=== PATIENT | male | born 1995 | race Caucasian/White ===

== ENCOUNTER 2020-07-19 15:36 | Emergency (ER) | payer SELFPAY ==
[~2020-07-19] VITALS: Ht 177.8 cm; Wt 63.0 kg
[2020-07-19] MEDS ORDERED: ACETAMINOPHEN 325MG TABLET PO STA (16:05)
[2020-07-19 16:55] LABS: BASOPHILS % 0.2 % (0.0-2.0); EOSINOPHILS % 0.4 % (0.0-5.0); HEMATOCRIT. 47.3 % (42.0-52.0); HEMOGLOBIN. 15.9 g/dL (14.0-18.0); MEAN CORPUSCULAR HEMOGLOBIN 29.3 pg (28.0-32.0); MEAN CORPUSCULAR VOLUME 86.8 fL (80.0-94.0); MEAN PLATELET VOLUME 8.2 fl (7.4-10.4); MONOCYTES % 6.3 % (2.0-8.0); NEUTROPHILS % 83.1 % (40.0-76.0); PLATELET 217 x1000/uL (130-400); RED BLOOD CELL COUNT 5.45 mill/uL (4.7-6.1); RED CELL DISTRIBUTION WIDTH 13.7 % (11.6-14.6)
[2020-07-19 17:02] LABS: CHLORIDE 106 mEq/L (98-107)
[2020-07-19 18:00] VITALS: BP 113/72
[2020-07-19] MEDS ORDERED: LORAZEPAM 2MG/ML CPJ IV ONE (20:30)
== END 2020-07-19 20:03 | disposition home or self-care (01) ==
LOC: ER 15:36
DX: R07.89 Other chest pain (principal); R51.9 Headache, unspecified
CPT/HCPCS: 36415; 71045; 80053; 84484; 85025; 99285

== ENCOUNTER 2020-07-19 20:16 | Inpatient (IN) | payer MEDICAID ==
[~2020-07-19] VITALS: Ht 188 cm; Wt 70.4 kg
[2020-07-19] MEDS ORDERED: LORAZEPAM 2MG/ML CPJ IV ONE (20:30)
[2020-07-20] MEDS ORDERED: DIPHENHYDRAMINE 50MG/ML VIAL IV PRN (00:45)
[2020-07-20] MEDS ORDERED: LORAZEPAM 2MG/ML CPJ IV PRN (00:45)
[2020-07-20] MEDS ORDERED: NA PHOS,M-B/NA PHOS,DI-BA ENEMA 118ML PR PRN (00:45)
[2020-07-20] MEDS ORDERED: MAGNESIUM/ALUMINUM HYDROXIDE/SIMETHICONE 30ML UDC PO PRN (00:45)
[2020-07-20] MEDS ORDERED: DOCUSATE SODIUM 100MG CAPSULE PO PRN (00:45)
[2020-07-20] MEDS ORDERED: ACETAMINOPHEN 325MG TABLET PO PRN (00:45)
[2020-07-20] MEDS ORDERED: CLONIDINE 0.1MG TABLET PO PRN (00:45)
[2020-07-20] MEDS ORDERED: ONDANSETRON HCL 4MG/2ML INJ IV PRN (00:45)
[2020-07-20] MEDS ORDERED: GUAIFENESIN 200MG/10ML SUGAR FREE UDC PO PRN (00:45)
[2020-07-20] MEDS ORDERED: IPRATROPIUM/ALBUTEROL 0.5-3(2.5)MG/3ML NEB NEB PRN (00:45)
[2020-07-20] MEDS: MORPHINE SULFATE 2 MG/ML CPJ (NOT FOR IM USE) IV PRN ×3 (02:12→21:51)
[2020-07-20] MEDS: SODIUM CHLORIDE 0.45% 1,000 ML IV SCH ×2 (08:00→15:50)
[2020-07-20] MEDS: ASPIRIN 81MG EC TABLET PO SCH (08:08)
[2020-07-20 08:27] LABS: CHLORIDE 109 mEq/L (98-107)
[2020-07-20 09:15] LABS: BASOPHILS % 0.2 % (0.0-2.0); EOSINOPHILS % 0.1 % (0.0-5.0); HEMATOCRIT. 42.6 % (42.0-52.0); HEMOGLOBIN. 14.7 g/dL (14.0-18.0); LYMPHOCYTES % 8.2 % (20.0-50.0); MEAN CORPUSCULAR HEMOGLOBIN 30.1 pg (28.0-32.0); MEAN PLATELET VOLUME 8.5 fl (7.4-10.4); MONOCYTES % 8.4 % (2.0-8.0); NEUTROPHILS % 83.1 % (40.0-76.0); PLATELET 206 x1000/uL (130-400); RED CELL DISTRIBUTION WIDTH 13.6 % (11.6-14.6)
[2020-07-20] MEDS: HYDROCODONE/ACETAMINOPHEN 5/325MG TABLET PO PRN ×2 (11:31→16:33)
[2020-07-20 15:15] VITALS: BP 133/70
[2020-07-20 16:30] VITALS: BP 133/70
[2020-07-20] MEDS: ENOXAPARIN 40MG/0.4ML SYR SUBCUT SCH (16:34)
[2020-07-20 18:00] VITALS: BP 124/67
[2020-07-20 20:00] VITALS: BP 127/63
[2020-07-20 21:45] VITALS: BP 111/50
[2020-07-21] VITALS (8 sets, daily range): BP systolic 115–127; BP diastolic 47–71
[2020-07-21] MEDS: HYDROCODONE/ACETAMINOPHEN 5/325MG TABLET PO PRN (00:16)
[2020-07-21] MEDS: SODIUM CHLORIDE 0.45% 1,000 ML IV SCH (05:10)
[2020-07-21 05:59] LABS: BASOPHILS % 0.4 % (0.0-2.0); EOSINOPHILS % 1.1 % (0.0-5.0); HEMATOCRIT. 42.7 % (42.0-52.0); HEMOGLOBIN. 14.5 g/dL (14.0-18.0); LYMPHOCYTES % 19.1 % (20.0-50.0); MEAN CORPUSCULAR HEMOGLOBIN 29.7 pg (28.0-32.0); MEAN CORPUSCULAR VOLUME 87.2 fL (80.0-94.0); MEAN PLATELET VOLUME 8.3 fl (7.4-10.4); MONOCYTES % 10.9 % (2.0-8.0); NEUTROPHILS % 68.5 % (40.0-76.0); PLATELET 188 x1000/uL (130-400); RED BLOOD CELL COUNT 4.89 mill/uL (4.7-6.1); RED CELL DISTRIBUTION WIDTH 13.7 % (11.6-14.6)
[2020-07-21 06:14] LABS: CHLORIDE 107 mEq/L (98-107)
[2020-07-21 06:24] LABS: LDL CHOLESTEROL 77 mg/dL (5-100); T4 FREE 0.89 ng/dL (0.76-1.46)
[2020-07-21 06:26] LABS: HDL CHOLESTEROL 50 mg/dL (40-59)
[2020-07-21] MEDS: ENOXAPARIN 40MG/0.4ML SYR SUBCUT SCH (09:00)
[2020-07-21] MEDS: ASPIRIN 81MG EC TABLET PO SCH (09:48)
[2020-07-21] MEDS: MORPHINE SULFATE 2 MG/ML CPJ (NOT FOR IM USE) IV PRN (11:05)
== END 2020-07-21 15:30 | disposition home or self-care (01) | DRG 53 ==
LOC: ER 20:16 → MICUSO 22:07 → 3WST 07-20 14:21
PROVIDERS: ADMIT Internal Medicine; ATTEND Internal Medicine
DX: G40.89 Other seizures (principal); E86.0 Dehydration; F13.139 Sedative, hypnotic or anxiolytic abuse with withdrawal, unspecified
CPT/HCPCS: 36415; 80048; 80053; 80061; 84439; 84443; 84484; 85025; 93005; 93970; 99285; J1650; J2060; J2270